=== PATIENT | female | born 1990 | race Caucasian/White ===

== ENCOUNTER 2017-04-10 01:40 | Emergency (ER) | payer OTHER | END 2017-04-10 04:44 | disposition home or self-care (01) | LOC: FTE 01:40 | DX: L02.411 Cutaneous abscess of right axilla (principal) | CPT/HCPCS: 99284; Z7502 ==

== ENCOUNTER 2017-05-04 11:18 | Emergency (ER) | payer OTHER ==
[2017-05-04] MEDS: DEXAMETHASONE 10 MG/ML 1 ML INJ IM (13:11)
[2017-05-04] MEDS: IBUPROFEN 800 MG TAB PO (13:11)
== END 2017-05-04 13:36 | disposition home or self-care (01) ==
LOC: FTE 11:18
DX: J02.9 Acute pharyngitis, unspecified (principal)
CPT/HCPCS: 96372; 99284-25

== ENCOUNTER 2017-09-01 22:31 | Emergency (ER) | payer OTHER ==
[2017-09-02] MEDS ORDERED: ACETAMINOPHEN 500 MG TAB PO (02:55)
[2017-09-02] MEDS: KETOROLAC 60 MG INJ IM (03:23)
[2017-09-02] MEDS: PENICILLIN G BENZ 2.4 MIL UNIT SYG IM (03:23)
[2017-09-02] MEDS: ACETAMINOPHEN 650MG/20.3ML CUP PO (03:23)
== END 2017-09-02 03:35 | disposition home or self-care (01) ==
LOC: FTE 22:31
DX: J02.9 Acute pharyngitis, unspecified (principal)
CPT/HCPCS: 96372; 99284-25

== ENCOUNTER 2017-11-21 20:23 | Emergency (ER) | payer SELFPAY, OTHER | END 2017-11-21 20:51 | disposition left against medical advice (07) | LOC: FTE 20:51 | DX: Z53.21 Procedure and treatment not carried out due to patient leaving prior to being seen by health care provider (principal) ==

== ENCOUNTER 2018-03-25 03:57 | Emergency (ER) | payer OTHER | END 2018-03-25 05:27 | disposition home or self-care (01) | LOC: FTE 03:57 | DX: J02.0 Streptococcal pharyngitis (principal) | CPT/HCPCS: 99283; Z7502 ==

== ENCOUNTER 2018-07-05 04:40 | Emergency (ER) | payer OTHER | END 2018-07-05 07:25 | disposition home or self-care (01) | LOC: FTE 07:25 | DX: J40 Bronchitis, not specified as acute or chronic (principal) | CPT/HCPCS: 99283; Z7502 ==

== ENCOUNTER 2018-07-23 19:49 | Emergency (ER) | payer OTHER ==
[2018-07-23] MEDS: IBUPROFEN 600 MG TAB PO (21:31)
[2018-07-23 22:16] LABS: TROPONIN-I < 0.012 ng/ml (0.000-0.120)
== END 2018-07-23 23:32 | disposition home or self-care (01) ==
LOC: FTE 23:32
DX: R07.89 Other chest pain (principal); L02.412 Cutaneous abscess of left axilla
CPT/HCPCS: 36415; 71045; 81025; 84484; 87880; 93005; 99285-25